=== PATIENT | male | born 1995 | race Caucasian/White ===

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

== ENCOUNTER 2017-07-04 11:35 | Inpatient (IN) | payer BC, OTHER ==
[2017-07-04] MEDS ORDERED: Sodium Chloride 0.9% 1,000 ML IV STA (12:53)
--- NOTE | 2017-07-04 12:57 | ED PDOC ---
HPI: Eye Injury/Pain Time Seen by Provider: 07/04/17 12:43 Chief Complaint (Nursing): Eye Problem Chief Complaint (Provider): Left eye swelling History Per: Patient History/Exam Limitations: no limitations Onset/Duration Of Symptoms: Days (1) Current Symptoms Are (Timing): Still Present Associated Symptoms: Discharge From Eye Additional Complaint(s): 22yo male, no known past medical history, presents to ER for evaluation of left eye swelling and clear drainage from his eye since yesterday. Patient states the swelling worsened this morning, prompting the ER visit. He denies noticing any pimples or purulent drainage from the area. He denies any fever or chills. He has no other complaints. Past Medical History Reviewed: Historical Data, Nursing Documentation, Vital Signs Vital Signs: Last Vital Signs Temp 98.7 F 07/04/17 12:17 Pulse 88 07/04/17 12:17 Resp 19 07/04/17 12:17 BP 110/70 07/04/17 12:17 Pulse Ox 100 07/04/17 12:17 - Medical History PMH: No Chronic Diseases - Surgical History Surgical History: No Surg Hx - Family History Family History: States: Unknown Family Hx - Immunization History Hx Tetanus Toxoid Vaccination: Yes - Home Medications Home Medications: Ambulatory Orders Medication Instructions Recorded No Known Home Med 12/17/16 - Allergies Allergies/Adverse Reactions: Allergies Allergy/AdvReac Type Severity Reaction Status Date / Time No Known Allergies Allergy Verified 12/17/16 16:52 Review of Systems ROS Statement: Except As Marked, All Systems Reviewed And Found Negative Constitutional: Negative for: Fever, Chills Eyes: Positive for: Eyelid Inflammation (left side) Physical Exam - Reviewed Nursing Documentation Reviewed: Yes Vital Signs Reviewed: Yes - Physical Exam Appears: Positive for: Non-toxic, No Acute Distress Skin: Positive for: Warm Eye Exam: Positive for: EOMI, PERRL, Periorbital swelling (left flower periorbital swelling with erythematous and indurated area.) Neck: Positive for: Normal Cardiovascular/Chest: Positive for: Regular Rate, Rhythm Respiratory: Positive for: Normal Breath Sounds Neurologic/Psych: Positive for: Alert, Oriented - Laboratory Results Result Diagrams: 07/04/17 14:00 07/04/17 14:00 - ECG O2 Sat by Pulse Oximetry: 100 (RA) Pulse Ox Interpretation: Normal Medical Decision Making Medical Decision Making: Impression: Left lower periorbital swelling, r/o abscess Plan: -- CT Orbits -- Labs -- IV Fluids Time: 1543 -- Clindamycin 600mg IVPB Time: 1613 CT Orbits IMPRESSION: Extensive left periorbital cellulitis preseptal in location without postseptal extension. Medial left paranasal edema is also identified. No abscess or definitive emphysematous change appreciated. Time: 1700 Patient seen and evaluated by ED attending Dr. Peck, who agrees with plan for admission. Time: [address] Haley, patient to be admitted under Dr. Haley. Scribe Attestation: Documented by Annmarie Lowe acting as a scribe for HOMERO Kim Provider Attestation: All medical record entries made by the Scribe were at my direction and personally dictated by me. I have reviewed the chart and agree that the record accurately reflects my personal performance of the history, physical exam, medical decision making, and the department course for this patient. I have also personally directed, reviewed, and agree with the discharge instructions and disposition. Disposition - Clinical Impression Clinical Impression: Periorbital cellulitis - Patient ED Disposition Is Patient to be Admitted: Yes Counseled Patient/Family Regarding: Diagnosis - Disposition Disposition: Routine/Home Disposition Time: 18:31 Condition: STABLE
[2017-07-04 14:09] LABS: BASO # 0.1 K/uL (0.0-0.2); BASO % 0.8 % (0.0-2.0); EOS % 0.5 % (0.0-4.0); HEMOGLOBIN 15.6 g/dL (12.0-18.0); LYMPH # 0.9 K/uL (1.0-4.3); LYMPH % 12.4 % (20.0-40.0); MEAN CORPUSCULAR HEMOGLOBIN 31.5 pg (27.0-31.0); MEAN CORPUSCULAR HGB CONC 34.3 g/dL (33.0-37.0); MEAN PLATELET VOLUME 8.7 fl (7.2-11.7); MONO # 0.8 K/uL (0.0-0.8); MONO % 11.2 % (0.0-10.0); NEUT # 5.4 K/uL (1.8-7.0); NEUT % 75.1 % (50.0-75.0); NRBC % 0.7 % (0.0-0.0); RBC 4.95 Mil/uL (4.40-5.90); RED CELL DISTRIBUTION WIDTH 13.2 % (11.5-14.5); WHITE BLOOD COUNT 7.2 K/uL (4.8-10.8)
[2017-07-04 14:22] LABS: ALB/GLOB RATIO 1.2 (1.0-2.1); ALBUMIN 4.7 g/dL (3.5-5.0); ALT/SGPT 39 U/L (21-72); AST/SGOT 35 U/L (17-59); BLOOD UREA NITROGEN 11 mg/dl (9-20); CALCIUM 9.8 mg/dL (8.4-10.2); GFR AFRICAN-AMERICAN > 60; GFR NON-AFRICAN AMERICAN > 60
[2017-07-04] MEDS ORDERED: Iohexol 300 100 ML IJ ONE (15:24)
[2017-07-04] MEDS ORDERED: Clindamycin 600mg/50ml NS 600 MG/50 ML BAG IVPB ONE (15:43)
--- NOTE | 2017-07-04 16:15 | CT ---
PROCEDURE: CT ORBITS WITH CONTRAST. HISTORY: left periorbital edema COMPARISON: None available. TECHNIQUE: Following administration of intravenous iodinated contrast, axial CT images of the orbits were obtained. Coronal and sagittal reformats were generated. Intravenous contrast dose: Omnipaque 300, 80 cc Radiation dose: Total exam DLP = 73.50 mGy-cm. This CT exam was performed using one or more of the following dose reduction techniques: Automated exposure control, adjustment of the mA and/or kV according to patient size, and/or use of iterative reconstruction technique. FINDINGS: RIGHT ORBIT: RIGHT BONY ORBIT: Normal. RIGHT INTRAORBITAL STRUCTURES: Globe: Normal. Extraocular muscles: Normal. Post septal space: Normal. Optic Nerve: Normal. Lacrimal Apparatus: Normal. RIGHT PRESEPTAL SOFT TISSUES: There is extensive preseptal edema affecting the mid to inferior left periorbital soft tissues extending into the cheek soft tissues without abscess formation or postseptal involvement. Moderate medial left paranasal soft tissue edema is also appreciated. Limited supraorbital involvement is appreciated. No emphysematous soft tissue changes are identified definitively. LEFT ORBIT: LEFT BONY ORBIT: Normal. LEFT INTRAORBITAL STRUCTURES: Globe: Normal. Extraocular muscles: Normal. Post septal space: Normal. Optic Nerve: Normal. Lacrimal Apparatus: Normal. LEFT PRESEPTAL SOFT TISSUES: Normal. OTHER: None. IMPRESSION: Extensive left periorbital cellulitis preseptal in location without postseptal extension. Medial left paranasal edema is also identified. No abscess or definitive emphysematous change appreciated.
[2017-07-05] MEDS: Clindamycin 600mg/50ml NS 600 MG/50 ML BAG IVPB SCH ×3 (01:08→17:59)
[2017-07-05] MEDS ORDERED: Pneumococcal 23-Valent Vaccine IM ONE (01:31)
[2017-07-05] MEDS ORDERED: Influenza Vaccine 18yr & older 0.5 ML/45 MCG SYR IM ONE (01:48)
[2017-07-05] MEDS: Piperacillin/Tazobact 3.375 GM in Sodium Chloride 0.9% 100 ML IVPB SCH ×4 (04:17→21:17)
[2017-07-05 07:23] LABS: HEMOGLOBIN 14.3 g/dL (12.0-18.0); MEAN CORPUSCULAR HEMOGLOBIN 31.5 pg (27.0-31.0); MEAN CORPUSCULAR HGB CONC 34.3 g/dL (33.0-37.0); RBC 4.55 Mil/uL (4.40-5.90); RED CELL DISTRIBUTION WIDTH 13.3 % (11.5-14.5); WHITE BLOOD COUNT 6.2 K/uL (4.8-10.8)
[2017-07-05 07:47] LABS: BLOOD UREA NITROGEN 11 mg/dl (9-20); GFR AFRICAN-AMERICAN > 60; GFR NON-AFRICAN AMERICAN > 60
--- NOTE | 2017-07-05 09:33 | CP.PCM.PN ---
Subjective - Date & Time of Evaluation Date of Evaluation: 07/05/17 Time of Evaluation: 09:30 - Subjective Subjective: I D NOTE DISCUSSED c NURSING LAST NIGHT LABS ORDERED ,Rx ORDERED ACYCLOVIR,ZOSYN,CLINDAMYCIN WOULD CONSIDER MRI IF NO IMPROVEMENT WILL SEE LATER IN DAY Objective - Vital Signs/Intake and Output Vital Signs (last 24 hours): Temp Pulse Resp BP Pulse Ox 98.0 F 90 18 94/53 L 99 07/05/17 08:07 07/05/17 08:07 07/05/17 08:07 07/05/17 08:07 07/05/17 08:07 - Medications Medications: Current Medications Piperacillin Sod/Tazobactam (Sod 3.375 gm/ Sodium Chloride) 100 mls @ 100 mls/ hr IVPB Q6 LEONARD PRN Reason: Protocol Last Admin: 07/05/17 04:17 Dose: 100 mls/hr Clindamycin Phosphate (Cleocin In Normal Saline) 600 mg in 50 mls @ 50 mls/hr IVPB Q8 LEONARD PRN Reason: Protocol Last Admin: 07/05/17 01:08 Dose: 50 mls/hr Acyclovir 800 mg/ Sodium (Chloride) 266 mls @ 266 mls/hr IV Q8 LEONARD PRN Reason: Protocol - Labs Labs: 07/05/17 06:00 07/05/17 06:00
--- NOTE | 2017-07-05 12:20 | CP.PCM.HP ---
<Jonel Garcia - Last Filed: 07/05/17 14:05> History of Present Illness - History of Present Illness History of Present Illness: 22 y/o M with no PMhx presented to ED c/o L/facial and periorbital swelling with facial pain for 2 days. Denies intraocular pain, vomiting, fever, nausea, dizziness or headache. Admits noticing a furuncle days ago in the left facial area where the swelling started and from that area has been spreading. Has no other complains Present on Admission - Present on Admission Any Indicators Present on Admission: No Review of Systems - Review of Systems All systems: reviewed and no additional remarkable complaints except - Integumentary Integumentary: Furuncle Additional comments: facial swelling, redness Past Patient History - Infectious Disease Hx of Infectious Diseases: None - Past Medical History & Family History Past Medical History?: Yes - Past Social History Smoking Status: Marijuana - CARDIAC Hx Cardiac Disorders: No - PULMONARY Hx Respiratory Disorders: Yes Other/Comment: Seasonal allergies - NEUROLOGICAL Hx Neurological Disorder: No - HEENT Hx HEENT Problems: No - RENAL Hx Chronic Kidney Disease: No - ENDOCRINE/METABOLIC Hx Endocrine Disorders: No - HEMATOLOGICAL/ONCOLOGICAL Hx Blood Disorders: No - INTEGUMENTARY Hx Dermatological Problems: No - MUSCULOSKELETAL/RHEUMATOLOGICAL Hx Musculoskeletal Disorders: No Hx Falls: No - GASTROINTESTINAL Hx Gastrointestinal Disorders: No - GENITOURINARY/GYNECOLOGICAL Hx Genitourinary Disorders: No - PSYCHIATRIC Hx Psychophysiologic Disorder: Yes Hx Substance Use: Yes (Marijuana) - SURGICAL HISTORY Hx Surgeries: No - ANESTHESIA Hx Anesthesia: No Hx Anesthesia Reactions: No Hx Malignant Hyperthermia: No Has any member of the family had a problem w/ anesthesia?: No Meds Allergies/Adverse Reactions: Allergies Allergy/AdvReac Type Severity Reaction Status Date / Time No Known Allergies Allergy Verified 12/17/16 16:52 Physical Exam - Constitutional Appears: Non-toxic, No Acute Distress - Eye Exam Eye Exam: EOMI, PERRL. absent: Normal appearance (Infraorbital swelling/ redness L/eye) Results - Vital Signs Recent Vital Signs: Last Vital Signs Temp 98.0 F 07/05/17 08:07 Pulse 90 07/05/17 08:07 Resp 18 07/05/17 08:07 BP 94/53 L 07/05/17 08:07 Pulse Ox 99 02/22/18 08:07 - Labs Result Diagrams: 07/05/17 06:00 07/05/17 06:00 Labs: Laboratory Results - last 24 hr 07/04/17 07/04/17 07/05/17 14:00 14:00 06:00 WBC 7.2 6.2 RBC 4.95 4.55 Hgb 15.6 14.3 Hct 45.5 41.8 MCV 92.0 92.0 MCH 31.5 H 31.5 H MCHC 34.3 34.3 RDW 13.2 13.3 Plt Count 174 171 MPV 8.7 Neut % (Auto) 75.1 H Lymph % (Auto) 12.4 L [place] % (Auto) 11.2 H Eos % (Auto) 0.5 Baso % (Auto) 0.8 Neut # (Auto) 5.4 Lymph # (Auto) 0.9 L [place] # (Auto) 0.8 Eos # (Auto) 0.0 Baso # (Auto) 0.1 ESR 19 H Sodium 142 Potassium 4.6 Chloride 101 Carbon Dioxide 29 Anion Gap 17 BUN 11 Creatinine 0.7 L Est GFR ( Amer) > 60 Est GFR (Non-Af Amer) > 60 Random Glucose 94 Calcium 9.8 Total Bilirubin 0.9 AST 35 ALT 39 Alkaline Phosphatase 65 Total Protein 8.6 H Albumin 4.7 Globulin 4.0 H Albumin/Globulin Ratio 1.2 07/05/17 06:00 WBC RBC Hgb Hct MCV MCH MCHC RDW Plt Count MPV Neut % (Auto) Lymph % (Auto) [place] % (Auto) Eos % (Auto) Baso % (Auto) Neut # (Auto) Lymph # (Auto) [place] # (Auto) Eos # (Auto) Baso # (Auto) ESR Sodium 141 Potassium 3.7 Chloride 104 Carbon Dioxide 23 Anion Gap 18 BUN 11 Creatinine 0.9 Est GFR ( Amer) > 60 Est GFR (Non-Af Amer) > 60 Random Glucose 91 Calcium 9.0 Total Bilirubin AST ALT Alkaline Phosphatase Total Protein Albumin Globulin Albumin/Globulin Ratio Assessment & Plan - Assessment and Plan (Free Text) Assessment: 22 y/o patient admitted with L/facial cellulitis Left facial/infraorbital cellulitis with abscess acute Poss infected Acne No Leukocytosis. CMP unremarkable C/w IV Zosyn Add Clindamycin ID consult appreciated Afebrile Monitor Pain control Warm compress <Ramesh Haley - Last Filed: 07/06/17 11:26> Results - Vital Signs Recent Vital Signs: Last Vital Signs Temp 98.3 F 07/06/17 07:59 Pulse 78 07/06/17 07:59 Resp 20 07/06/17 07:59 BP 98/52 L 07/06/17 07:59 Pulse Ox 97 07/06/17 07:59 - Labs Result Diagrams: 07/06/17 05:00 07/06/17 05:00 Labs: Laboratory Results - last 24 hr 07/06/17 07/06/17 05:00 05:00 WBC 6.1 RBC 4.60 Hgb 14.5 Hct 41.7 MCV 90.7 MCH 31.6 H MCHC 34.8 RDW 13.0 Plt Count 159 Sodium 140 Potassium 3.6 Chloride 103 Carbon Dioxide 25 Anion Gap 16 BUN 13 Creatinine 1.0 Est GFR ( Amer) > 60 Est GFR (Non-Af Amer) > 60 Random Glucose 90 Calcium 9.3 Assessment & Plan - Assessment and Plan (Free Text) Plan: I was present during evaluation and discussed with patient re plans of care and mgt.
[2017-07-06] MEDS: Clindamycin 600mg/50ml NS 600 MG/50 ML BAG IVPB SCH ×2 (00:51→09:06)
--- NOTE | 2017-07-06 02:03 | CON ---
INFECTIOUS DISEASE CONSULTATION DATE: HISTORY OF PRESENT ILLNESS: The patient is a 22-year-old male, who is admitted because of painful swelling around the left orbit. He also had some clear drainage from his eye. The patient states he had a little lesion under his eye which he showed me and it became worse on the morning of admission prompting him for the ER visit. He did not note any pimples or purulent drainage. Although, upon discussion with the patient, it was noted that he has always had what felt like a little round ball in that area and possibly this may be sebaceous cyst and has became infected. The patient has no previous medical history other than the possible rule out concussion that he got playing basketball few months back. He denies any history of fever and chills. There is no change as of now as that swelling has gotten better. He states he has no loss of vision and/or blurriness of vision nor that he feel dizzy. PHYSICAL EXAMINATION GENERAL: The patient is alert, cooperative and oriented to time and place and this is a pleasant 22-year-old who works as a drive in waiter/waitress at [employer]. HEENT: Other than that was within normal limits. Cannot open his mouth fully because of the swelling. NECK: Supple. No significant adenopathy. LUNGS: Clear. HEART: Regular sinus rhythm. ABDOMEN: Soft. Positive bowel sounds. EXTREMITIES: No CCE. LABORATORY DATA: White count is 7.2 on 07/04/2017, today is 6.2 and hemoglobin is 14.3. He has minimal left shift, sed rate is only 90. We are awaiting procalcitonin levels and also I ordered varicella-zoster IgM and IgG, but at this moment doubt if this is a varicella or shingles, i.e., herpes zoster. Microcultures are negative so far. Creatinine is 0.9. GFR is greater than 60. IMPRESSION AND PLAN: Facial periorbital cellulitis. I have continued to treat with clindamycin and Zosyn. I have discontinued IV acyclovir and started him on p.o. acyclovir, when zoster titers come back I will stop that. If it turns out to be an infected sebaceous cyst, the patient may need a removal of this in the future as he might have recurrence. Jesus Cross MD [facility] # [id number]
[2017-07-06] MEDS: Piperacillin/Tazobact 3.375 GM in Sodium Chloride 0.9% 100 ML IVPB SCH ×2 (03:24→10:29)
[2017-07-06 06:34] LABS: HEMOGLOBIN 14.5 g/dL (12.0-18.0); MEAN CELL VOLUME 90.7 fl (80.0-94.0); MEAN CORPUSCULAR HEMOGLOBIN 31.6 pg (27.0-31.0); MEAN CORPUSCULAR HGB CONC 34.8 g/dL (33.0-37.0); RBC 4.6 Mil/uL (4.40-5.90); WHITE BLOOD COUNT 6.1 K/uL (4.8-10.8)
[2017-07-06 06:49] LABS: BLOOD UREA NITROGEN 13 mg/dl (9-20); CALCIUM 9.3 mg/dL (8.4-10.2); GFR AFRICAN-AMERICAN > 60; GFR NON-AFRICAN AMERICAN > 60
[2017-07-06 08:01] VITALS: BP 98/52; PULSE 78; RESP 20; TEMP 98.3; O2SAT 97
--- NOTE | 2017-07-06 11:22 | CP.PCM.DIS ---
Provider - Provider Date of Admission: 07/04/17 18:23 Attending physician: Ramesh Haley MD Time Spent in preparation of Discharge (in minutes): 30 Hospital Course - Lab Results Lab Results: Micro Results 07/04/17 14:05 Blood-Venous Blood Culture - Preliminary NO GROWTH AFTER 24 HOURS 07/04/17 14:00 Blood-Venous Blood Culture - Preliminary NO GROWTH AFTER 24 HOURS Most Recent Lab Values WBC 6.1 K/uL (4.8-10.8) 07/06/17 05:00 RBC 4.60 Mil/uL (4.40-5.90) 07/06/17 05:00 Hgb 14.5 g/dL (12.0-18.0) 07/06/17 05:00 Hct 41.7 % (35.0-51.0) 07/06/17 05:00 MCV 90.7 fl (80.0-94.0) 07/06/17 05:00 MCH 31.6 pg (27.0-31.0) H 07/06/17 05:00 MCHC 34.8 g/dL (33.0-37.0) 07/06/17 05:00 RDW 13.0 % (11.5-14.5) 07/06/17 05:00 Plt Count 159 K/uL (130-400) 07/06/17 05:00 MPV 8.7 fl (7.2-11.7) 07/04/17 14:00 Neut % (Auto) 75.1 % (50.0-75.0) H 07/04/17 14:00 Lymph % (Auto) 12.4 % (20.0-40.0) L 07/04/17 14:00 [place] % (Auto) 11.2 % (0.0-10.0) H 07/04/17 14:00 Eos % (Auto) 0.5 % (0.0-4.0) 07/04/17 14:00 Baso % (Auto) 0.8 % (0.0-2.0) 07/04/17 14:00 Neut # (Auto) 5.4 K/uL (1.8-7.0) 07/04/17 14:00 Lymph # (Auto) 0.9 K/uL (1.0-4.3) L 07/04/17 14:00 [place] # (Auto) 0.8 K/uL (0.0-0.8) 07/04/17 14:00 Eos # (Auto) 0.0 K/uL (0.0-0.7) 07/04/17 14:00 Baso # (Auto) 0.1 K/uL (0.0-0.2) 07/04/17 14:00 ESR 19 mm/hr (0-15) H 07/05/17 06:00 Sodium 140 mmol/l (132-148) 07/06/17 05:00 Potassium 3.6 MMOL/L (3.6-5.0) 07/06/17 05:00 Chloride 103 mmol/L (98-107) 07/06/17 05:00 Carbon Dioxide 25 mmol/L (22-30) 07/06/17 05:00 Anion Gap 16 (10-20) 07/06/17 05:00 BUN 13 mg/dl (9-20) 07/06/17 05:00 Creatinine 1.0 mg/dl (0.8-1.5) 07/06/17 05:00 Est GFR ( Amer) > 60 07/06/17 05:00 Est GFR (Non-Af Amer) > 60 07/06/17 05:00 Random Glucose 90 mg/dL (75-110) 07/06/17 05:00 Calcium 9.3 mg/dL (8.4-10.2) 07/06/17 05:00 Total Bilirubin 0.9 mg/dl (0.2-1.3) 07/04/17 14:00 AST 35 U/L (17-59) 07/04/17 14:00 ALT 39 U/L (21-72) 07/04/17 14:00 Alkaline Phosphatase 65 U/L (38-126) 07/04/17 14:00 Total Protein 8.6 G/DL (6.3-8.2) H 07/04/17 14:00 Albumin 4.7 g/dL (3.5-5.0) 07/04/17 14:00 Globulin 4.0 gm/dL (2.2-3.9) H 07/04/17 14:00 Albumin/Globulin Ratio 1.2 (1.0-2.1) 07/04/17 14:00 - Hospital Course Hospital Course: This is a 22 y/o male admitted for swelling and redness of the left chek after he manipulated a cystic acne on the area. there was redness and swelling extending to the lower left periorbital area. There was no fever. ID was called and was started on Zosyn and added Cleocin. He responded very well and was discharged on Cleocin and ibuprofen. He was advised to follow up for referral to dermatology and possibly plastic surgery Discharge Exam - Head Exam Additional comments: resolving abscess on the left cheek area. - Eye Exam Eye Exam: Normal appearance - Respiratory Exam Respiratory Exam: NORMAL BREATHING PATTERN Discharge Plan - Follow Up Plan Condition: STABLE Disposition: HOME/ ROUTINE Additional Instructions: advised follow up in 1 week in my office
[2017-07-06] MEDS ORDERED: Clindamycin 600mg/50ml NS 600 MG/50 ML BAG IVPB SCH (17:00)
== END 2017-07-06 13:41 | disposition home or self-care (01) | DRG 603 ==
LOC: H.ER 11:35 → H.ERHOLD 18:23 → H.MEDSURG1 22:22
PROVIDERS: ADMIT Family Medicine; ATTEND Family Medicine
PROC: 3E0234Z Introduction of Serum, Toxoid and Vaccine into Muscle, Percutaneous Approach (ICD-10-PCS; principal; 2017-07-05)
DX: L03.213 Periorbital cellulitis (principal); J30.2 Other seasonal allergic rhinitis; Z23 Encounter for immunization

== ENCOUNTER 2017-10-02 07:11 | Emergency (ER) | payer OTHER ==
[2017-10-02 07:19] VITALS: BP 118/76; TEMP 97; BMI 21.8
[2017-10-02 07:34] VITALS: RESP 18
--- NOTE | 2017-10-02 07:49 | ED PDOC ---
Upper Extremity Pain/Injury Time Seen by Provider: 10/02/17 07:42 Chief Complaint (Nursing): Finger,Hand,&Wrist Chief Complaint (Provider): Wrist pain History Per: Patient History/Exam Limitations: no limitations Onset/Duration Of Symptoms: Days (yesterday) Current Symptoms Are (Timing): Still Present Additional Complaint(s): Pain on both wrists after falling on them while holding a basketball. Pt. with no numbness, tingles, weakness, neck pain, head injury, loc. No hand, elbow, forearm pain. Past Medical History Reviewed: Nursing Documentation, Vital Signs Vital Signs: Last Vital Signs Temp 97 F L 10/02/17 07:30 Pulse 54 L 10/02/17 07:30 Resp 18 10/02/17 07:30 BP 118/76 10/02/17 07:30 Pulse Ox 98 10/02/17 07:30 - Medical History PMH: No Chronic Diseases Denies: Chronic Kidney Disease - Surgical History Surgical History: No Surg Hx - Family History Family History: States: Unknown Family Hx - Immunization History Hx Tetanus Toxoid Vaccination: Yes - Home Medications Home Medications: Ambulatory Orders Medication Instructions Recorded Clindamycin [Cleocin] 600 mg PO Q8H #40 cap 07/06/17 Ibuprofen [Motrin Tab] 600 mg PO TID PRN #30 tab 07/06/17 Ibuprofen [Motrin] 600 mg PO TID 7 Days tab 10/02/17 - Allergies Allergies/Adverse Reactions: Allergies Allergy/AdvReac Type Severity Reaction Status Date / Time No Known Allergies Allergy Verified 12/17/16 16:52 Review of Systems Constitutional: Negative for: Weakness Cardiovascular: Negative for: Chest Pain Respiratory: Negative for: Shortness of Breath Musculoskeletal: Positive for: Other (wrist pain). Negative for: Neck Pain, Shoulder Pain, Arm Pain, Back Pain, Hand Pain, Leg Pain Skin: Negative for: Rash Neurological: Negative for: Weakness, Numbness Physical Exam - Reviewed Nursing Documentation Reviewed: Yes Vital Signs Reviewed: Yes - Physical Exam Appears: Positive for: Non-toxic, No Acute Distress Head Exam: Positive for: ATRAUMATIC, NORMAL INSPECTION, NORMOCEPHALIC Skin: Positive for: Normal Color, Warm, DRY Neck: Positive for: Normal, Painless ROM Cardiovascular/Chest: Positive for: Regular Rate, Rhythm Respiratory: Positive for: CNT, Normal Breath Sounds Pulses-Radial (L): 2+ (2+ ulnar) Pulses-Radial (R): 2+ (2+ ulnar pulse) Back: Positive for: Normal Inspection. Negative for: L CVA Tenderness, R CVA Tenderness Extremity: Positive for: Tenderness (b/l distal ulnar lateral area; no swelling ; hands, fingers, forearms, elbows with no tenderness; has full ROM.). Negative for: Calf Tenderness Neurologic/Psych: Positive for: Alert, Oriented - ECG O2 Sat by Pulse Oximetry: 98 Pulse Ox Interpretation: Normal - Radiology X-Ray: Interpreted by Me, Viewed By Me X-Ray Interpretation: No Acute Disease - Progress ED Course And Treament: 811: Stable. AAOx3. Pain controlled. Fu with pcp. Fu with ortho if pain still present for repeat imaging as delayed appearance of fx possible. Disposition - Clinical Impression Clinical Impression: Wrist injury - Patient ED Disposition Is Patient to be Admitted: No Counseled Patient/Family Regarding: Studies Performed, Diagnosis, Need For Followup, Rx Given - Disposition Referrals: Ceasar Khan MD [Staff Provider] - 10/03/[address] [facility] [Outside] - 10/03/17 Disposition: Routine/Home Disposition Time: 08:13 Condition: STABLE Additional Instructions: Return if not better in 3 days. Prescriptions: Ibuprofen [Motrin] 600 mg PO TID 7 Days tab Instructions: Common Wrist Injuries (DC) Forms: [facility] (Yakut)
--- NOTE | 2017-10-02 08:23 | RAD ---
PROCEDURE: Bilateral Wrists Radiographs. HISTORY: wrist pain COMPARISON: None. FINDINGS: BONES: No acute fracture or destructive bony lesion identified involving the bilateral carpal bones and as well as the distal radius and ulna and proximal to mid metacarpal bones diffusely. JOINT SPACES: Right Wrist: Normal. No degenerative changes. Left Wrist: Normal. No degenerative changes. SOFT TISSUES: Right Wrist: Normal. Left Wrist: Normal. OTHER FINDINGS: None. IMPRESSION: Normal radiographs of the wrists. Should symptoms persist or worsen consider repeat radiography or MRI.
[2017-10-02 08:33] VITALS: PULSE 66; O2SAT 99
== END 2017-10-02 08:31 | disposition home or self-care (01) ==
LOC: H.ER 07:11
DX: S69.92XA Unspecified injury of left wrist, hand and finger(s), initial encounter (principal); S69.91XA Unspecified injury of right wrist, hand and finger(s), initial encounter; W19.XXXA Unspecified fall, initial encounter
CPT/HCPCS: 73110; 96372; 99284; J1885

== ENCOUNTER 2018-02-15 00:58 | Emergency (ER) | payer OTHER ==
[2018-02-15 00:58] VITALS: BMI 21.8
[2018-02-15 01:23] VITALS: TEMP 98.6
--- NOTE | 2018-02-15 02:47 | ED PDOC ---
HPI: General Adult <Gerry Shook - Last Filed: 02/15/18 03:14> Chief Complaint (Provider): shaking History Per: Patient History/Exam Limitations: no limitations Onset/Duration Of Symptoms: Hrs Current Symptoms Are (Timing): Gone Now Additional Complaint(s): 22 y/o male presents for evaluation of uncontrollable shaking of arms and legs prior to arrival. Patient states he had a headache and took one ibuprofen 600mg at midnight; states 20 minutes later his arms and legs started shaking and although aware it was happening he could not control it. Patient states symptoms lasted a half hour and then resolved. Patient admits to intermittent headaches since head injury 12/[address] head, states headache tonight similar. Has not yet followed up with Neuro. Denies headache at present, dizziness, nausea/vomiting, chest pain, shortness of breath, palpitations, changes in bowel movements. Admits to marijuana use, last used at 18:00 last night <Callie Cornell - Last Filed: 02/15/18 04:23> Time Seen by Provider: 02/15/18 02:30 Chief Complaint (Nursing): Allergic Reaction Past Medical History Vital Signs: Last Vital Signs Temp 98.6 F 02/15/18 01:07 Pulse 105 H 02/15/18 01:07 Resp 02/15/18 01:07 BP 160/71 H 02/15/18 01:07 Pulse Ox 98 02/15/18 02:47 <Gerry Shook - Last Filed: 02/15/18 03:14> Reviewed: Historical Data, Nursing Documentation, Vital Signs Vital Signs: Last Vital Signs Temp 98.6 F 02/15/18 01:07 Pulse 105 H 02/15/18 01:07 Resp 02/15/18 01:07 BP 160/71 H 02/15/18 01:07 Pulse Ox 98 02/15/18 01:07 - Medical History PMH: No Chronic Diseases Denies: Chronic Kidney Disease - Surgical History Surgical History: No Surg Hx - Family History Family History: States: Unknown Family Hx - Immunization History Hx Tetanus Toxoid Vaccination: Yes <Callie Cornell - Last Filed: 02/15/18 04:23> - Home Medications Home Medications: Ambulatory Orders Medication Instructions Recorded Clindamycin [Cleocin] 600 mg PO Q8H #40 cap 07/06/17 Ibuprofen [Motrin Tab] 600 mg PO TID PRN #30 tab 07/06/17 Ibuprofen [Motrin] 600 mg PO TID 7 Days tab 10/02/17 - Allergies Allergies/Adverse Reactions: Allergies Allergy/AdvReac Type Severity Reaction Status Date / Time No Known Allergies Allergy Verified 02/15/18 01:16 Review of Systems ROS Statement: Except As Marked, All Systems Reviewed And Found Negative Neurological: Positive for: Other (shaking) <Callie Cornell - Last Filed: 02/15/18 04:23> Physical Exam - Reviewed Nursing Documentation Reviewed: Yes Vital Signs Reviewed: Yes - Physical Exam Appears: Positive for: Well, Non-toxic, No Acute Distress Head Exam: Positive for: ATRAUMATIC, NORMAL INSPECTION, NORMOCEPHALIC Skin: Positive for: Normal Color Eye Exam: Positive for: Normal appearance, EOMI, PERRL ENT: Positive for: Normal ENT Inspection Cardiovascular/Chest: Positive for: Regular Rate, Rhythm Respiratory: Positive for: Normal Breath Sounds Gastrointestinal/Abdominal: Positive for: Normal Exam Back: Positive for: Normal Inspection Extremity: Positive for: Normal ROM Neurologic/Psych: Positive for: Alert, Oriented (x3) <Callie Cornell - Last Filed: 02/15/18 04:23> - Laboratory Results Result Diagrams: 02/15/18 03:10 02/15/18 03:10 - ECG O2 Sat by Pulse Oximetry: 98 - Progress ED Course And Treament: labs, utox On re-eval, patient resting comfortably; states no symptoms since arrival to ED Patient remains AAOx3. Vitals stable Patient educated on findings, discharged with instructions to follow up PMD within 2-3 days Return precautions given <Callie Cornell - Last Filed: 02/15/18 04:23> Disposition <Gerry Shook - Last Filed: 02/15/18 03:14> - Patient ED Disposition Is Patient to be Admitted: No Counseled Patient/Family Regarding: Studies Performed, Diagnosis, Need For Followup - Disposition Disposition: Routine/Home Disposition Time: 04:23 <Callie Cornell - Last Filed: 02/15/18 04:23> - Clinical Impression Clinical Impression: Episode of shaking - Disposition Referrals: [facility] [Outside] Condition: IMPROVED Instructions: Tremor Forms: [facility] (Bulgarian) Attending/Attestation - Attestation I have personally seen and examined this patient.: No I have fully participated in the care of the patient.: No I have reviewed all pertinent clinical information, including history, physical exam and plan: Yes <Gerry Shook - Last Filed: 02/15/18 03:14>
[2018-02-15 03:09] LABS: BARBITURATES, UR NEGATIVE (NEGATIVE); BENZODIAZEPINES, UR NEGATIVE (NEGATIVE); OPIATES, UR NEGATIVE (NEGATIVE); PHENCYCLIDINE, UR NEGATIVE (NEGATIVE)
[2018-02-15 03:13] LABS: BASO # 0.1 K/uL (0.0-0.2); BASO % 0.7 % (0.0-2.0); EOS % 0.2 % (0.0-4.0); HEMOGLOBIN 14.8 g/dL (12.0-18.0); LYMPH # 0.7 K/uL (1.0-4.3); LYMPH % 8.1 % (20.0-40.0); MEAN CELL VOLUME 89.1 fl (80.0-94.0); MEAN CORPUSCULAR HEMOGLOBIN 31.4 pg (27.0-31.0); MEAN CORPUSCULAR HGB CONC 35.2 g/dL (33.0-37.0); MEAN PLATELET VOLUME 9.1 fl (7.2-11.7); MONO # 0.9 K/uL (0.0-0.8); MONO % 9.7 % (0.0-10.0); NEUT # 7.2 K/uL (1.8-7.0); NEUT % 81.3 % (50.0-75.0); PLATELET COUNT 171 K/uL (130-400); RED CELL DISTRIBUTION WIDTH 12.6 % (11.5-14.5); WHITE BLOOD COUNT 8.9 K/uL (4.8-10.8)
[2018-02-15 03:23] LABS: ALB/GLOB RATIO 1.4 (1.0-2.1); ALBUMIN 4.7 g/dL (3.5-5.0); ALT/SGPT 31 U/L (21-72); AST/SGOT 29 U/L (17-59); BLOOD UREA NITROGEN 20 mg/dl (9-20); CALCIUM 9.2 mg/dL (8.4-10.2); GFR NON-AFRICAN AMERICAN > 60
[2018-02-15 03:54] VITALS: BP 106/58; PULSE 78; RESP 20
[2018-02-15 04:20] VITALS: O2SAT 98
[2018-02-15 05:23] LABS: BANDS 2 % (0-2); LYMPHOCYTE 8 % (20-50); MONOCYTE 8 % (0-10); NEUTROPHIL 82 % (42-75); PLATELET ESTIMATE NORMAL (NORMAL); TOTAL CELLS COUNTED 100
== END 2018-02-15 04:23 | disposition home or self-care (01) ==
LOC: H.ER 00:58
DX: R25.1 Tremor, unspecified (principal); F12.90 Cannabis use, unspecified, uncomplicated